=== PATIENT | female | born 1975 | race Caucasian/White ===

== ENCOUNTER 2023-11-10 10:25 | Day surgery (SDC) | payer OTHER, SELFPAY ==
[2023-11-10 10:47] VITALS: BMI 22.3
[2023-11-10 10:55] LABS: UPreg QC Valid YES; Urine Pregnancy NEGATIVE (NEGATIVE)
[2023-11-10 11:00] VITALS: BP 107/74; PULSE 71; RESP 16; TEMP 36.3; O2SAT 98
[2023-11-10] MEDS: Lactated Ringers 1,000 ML 100 ML IVCONT (11:05)
--- NOTE | 2023-11-10 13:15 | HO.ANESPROP2 ---
Documented by User: Josette Mensah NP 11/09/23 10:58 HPI - Anesthesia Eval Consult details Narrative: 48yo F for Right Medial Rectus Eye Muscle Recession Medically optimized per PCP [facility] Past Medical History Medical History (Updated 11/08/23 @ 08:16 by Jasmyne De Leon, RN) Urinary frequency Pain in both knees Lateral epicondylitis of elbow Thyroid disease Dysuria Contact dermatitis Depression Nasal fracture Benign nevus of skin Anxiety Abnormal uterine bleeding Social History Social History Patient Tobacco Use Status: Never used Tobacco Use of substances other than those prescribed or required for medical reasons: No Are you DNR?: No Advance Directives: No Advance Directives Information Provided: Yes Recently lost weight without trying: No Nutrition Risks: No Nutritional Risk Meds Allergies Allergy/AdvReac Type Severity Reaction Status Date / Time No Known Allergies Allergy Verified 11/10/23 10:52 Home Medications ?Medication ?Instructions ?Recorded ?Confirmed ?Last Taken ?Type lorazepam 0.5 mg tablet 0.5 mg PO DAILY PRN Anxiety 11/08/23 11/10/23 11/09/23 History prasterone (dhea) 25 mg capsule 25 mg PO DAILY 11/08/23 11/10/23 11/09/23 History Assessment and Plan Assessment Anesthesia Assessment: Chart Reviewed Documented by User: Whitney Edgar DO 11/10/23 13:44 [facility] Past Medical History Medical History (Updated 11/08/23 @ 08:16 by Jasmyne De Leon RN) Urinary frequency Pain in both knees Lateral epicondylitis of elbow Thyroid disease Dysuria Contact dermatitis Depression Nasal fracture Benign nevus of skin Anxiety Abnormal uterine bleeding Family History Family history of problems with anesthesia: No Surgical History History of Problems with Anesthesia: No Social History Social History Patient Tobacco Use Status: Never used Tobacco Use of substances other than those prescribed or required for medical reasons: No Are you DNR?: No Advance Directives: No Advance Directives Information Provided: Yes Recently lost weight without trying: No Nutrition Risks: No Nutritional Risk Meds Allergies Allergy/AdvReac Type Severity Reaction Status Date / Time No Known Allergies Allergy Verified 11/10/23 10:52 Home Medications ?Medication ?Instructions ?Recorded ?Confirmed ?Last Taken ?Type lorazepam 0.5 mg tablet 0.5 mg PO DAILY PRN Anxiety 11/08/23 11/10/23 11/09/23 History prasterone (dhea) 25 mg capsule 25 mg PO DAILY 11/08/23 11/10/23 11/09/23 History Exam Exam Date and Time: 11/10/23 1315 Height,Weight and Vital Signs: Height 5 ft 4 in Weight 58.967 kg Vital Signs Temperature 97.3 F 11/10/23 11:00 Pulse Rate 71 11/10/23 11:00 Respiratory Rate 16 11/10/23 11:00 Blood Pressure 107/74 11/10/23 11:00 Pulse Oximetry 98 11/10/23 11:00 Oxygen Delivery Method Room Air 11/10/23 11:00 Temperature 97.3 F 11/10/23 11:00 Pulse Rate 71 11/10/23 11:00 Respiratory Rate 16 11/10/23 11:00 Blood Pressure 107/74 11/10/23 11:00 Pulse Oximetry 98 11/10/23 11:00 Oxygen Delivery Method Room Air 11/10/23 11:00 Airway Mallampati Class: I TM Dist: >3cm Neck ROM: Full Loose/Missing/Broken Teeth: No (patient denies any loose or broken teeth) Heart: S1S2 Lungs: CTAB Assessment and Plan Assessment Anesthesia Assessment: Anesthesia Plan Discussed and Chart Reviewed Final Anesthetic Review Family History of Problems with Anesthesia: No History of Problems with Anesthesia: No NPO: Yes ASA Class: II Final Preanesthetic Review: No Changes in Pt Med Stat, Meds/Allgs Chart Reviewed, Consent Obtained/Reviewed and Anes Risks/Benef Reviewed Patient Risk: Low Procedure Risk: Low Anesthetic Plan Anesthetic Plan: GA and Agree w/ Assess. and Plan Disposition: Standard PACU
[2023-11-10 14:01] VITALS: BP 100/72; PULSE 75; RESP 16; TEMP 36.1; O2SAT 100
[2023-11-10 14:06] VITALS: BP 105/65; PULSE 72; RESP 16; O2SAT 97
[2023-11-10 14:11] VITALS: BP 102/69; PULSE 75; RESP 16; O2SAT 98
[2023-11-10 14:16] VITALS: BP 104/68; PULSE 71; RESP 16; O2SAT 99
--- NOTE | 2023-11-10 14:23 | HO.OPHTHAL ---
Ophthalmology Operative Note Date of Service: 11/10/23 Narrative: Diagnosis esotropia. Procedure recession of right medial rectus [address] Davenport. Anesthesia general. Complications none. The patient was brought to the operating room placed under general anesthesia. The right eye was prepped and draped in the usual sterile ophthalmic fashion. A peritomy was created around the medial rectus muscle which was hooked and secured with a double-armed Vicryl suture. It was disinserted from the globe and reattached to a position 4 mm behind the original insertion. Conjunctiva was closed with interrupted Vicryl sutures. The patient was then awoken from general anesthesia and discharged to postoperative recovery in good condition.
[2023-11-10] MEDS: Acetaminophen 325 MG TABLET 650 MG PO (14:29)
[2023-11-10 14:31] VITALS: BP 128/79; PULSE 70; RESP 16; TEMP 36.1; O2SAT 99
== END 2023-11-10 14:56 | disposition home or self-care (01) ==
PROVIDERS: Nurse Practitioner; Visit Provider Ophthalmology
PROC: (CPT 67311; principal; 2023-11-10 12:10)
DX: H53.2 Diplopia (principal); L71.0 Perioral dermatitis; Z79.899 Other long term (current) drug therapy; Z87.891 Personal history of nicotine dependence
CPT/HCPCS: 67311; 81025; J1100; J1596; J1885; J2250; J2405; J2704; J3010